=== PATIENT | male | born 2000 | race Caucasian/White ===

== ENCOUNTER 2021-07-25 19:39 | Emergency (ER) | payer BC ==
[~2021-07-25] VITALS: Ht 172.7 cm; Wt 69.9 kg
[2021-07-25 20:01] VITALS: BP 132/80
--- NOTE | 2021-07-25 21:54 | NUR ---
Patient ambulated to bed 11.
--- NOTE | 2021-07-25 21:59 | NUR ---
21 Y/O MALE BIBS FROM HOME, C/O lip pain x today. Patient reported, woke up and lip swelling , no SOB. PT DECRIBES PAIN BURNING (5/10). NO DIFFICULTY SPEAKING, BREATHING, OR SWALLOWING. A/OX4, GCS-15; UNLABORED BREATHING, SPEAKING IN FULL SENTENCES; AMBULATORY WITH STEADY GAIT. PT SEATED IN BED WITH HOB RAISED, BED IN LOWEST POSITION AND RAILS UP X2. PMHX: DENIES
--- NOTE | 2021-07-25 22:19 | NUR ---
Dr. Fan examining patient.
[2021-07-25] MEDS ORDERED: ACYC400T14 PO (22:39)
[2021-07-25] MEDS ORDERED: IBUP-2213 PO (22:39)
[2021-07-25 22:47] VITALS: BP 132/80
--- NOTE | 2021-07-25 22:48 | NUR ---
Patient discharged with v/s stable. Written and verbal after care instructions given and explained. Patient alert, oriented and verbalized understanding of instructions. Ambulatory with steady gait. All questions addressed prior to discharge. ID band removed. Patient advised to follow up with PMD. Rx of ZOVIRAX AND IBUPROFEN given. Patient educated on indication of medication including possible reaction and side effects. Opportunity to ask questions provided and answered. A/OX4, VSS, UNLABORED BREATHING, AMBULATORY, AND CALM DEMEANOR.
== END 2021-07-25 22:47 | disposition home or self-care (01) ==
LOC: MED 19:39
DX: B00.1 Herpesviral vesicular dermatitis (principal); Z79.899 Other long term (current) drug therapy
CPT/HCPCS: 99283